=== PATIENT | male | born 1965 | race Hispanic/Latino ===

== ENCOUNTER 2018-03-12 06:14 | Emergency (ER) | payer BC ==
[2018-03-12 08:02] VITALS: BP 139/94
--- NOTE | 2018-03-12 09:56 | Emergency Department Report ---
Blank Doc - Documentation Documentation: Patient is a 52-year-old male who is presenting with a rash for approximately 5 weeks. Patient states that is an erythematous rash that is diffuse over his body. Patient states there is associated weight loss of approximately 20-30 pounds and his lymphadenopathy. Patient states he sometimes feels dizzy as well. Patient denies any penile discharge no nausea vomiting diarrhea or cough at this time. Brief physical exam patient has a splotchy erythematous rash over his entire body excluding the face that involves the palms and soles. Patient also has some lymphadenopathy in the anterior cervical chain as well as the right inguinal. An RPR will be done as well as some basic labs to rule out life- threatening conditions.
[2018-03-12 10:30] LABS: Basophils % (Auto) 0.5 % (0.0-1.8); Eosinophils % (Auto) 0.3 % (0.0-4.3); Hematocrit 37.2 % (35.5-45.6); Hemoglobin 12.4 gm/dl (11.8-15.2); Lymphocytes # (Auto) 1.2 K/mm3 (1.2-5.4); Lymphocytes % (Auto) 21.3 % (13.4-35.0); Mean Corpuscular HGB Conc 34 % (32-34); Mean Corpuscular Hemoglobin 28 pg (28-32); Mean Corpuscular Volume 84 fl (84-94); Monocytes # (Auto) 0.6 K/mm3 (0.0-0.8); Platelet Count 279 K/mm3 (140-440); Red Blood Count 4.42 M/mm3 (3.65-5.03); Red Cell Distribution Width 13.9 % (13.2-15.2)
[2018-03-12 10:46] LABS: BUN/Creatinine Ratio 13; Blood Urea Nitrogen 8 mg/dL (9-20); Calcium 8.5 mg/dL (8.4-10.2); Hemolysis Index 3
--- NOTE | 2018-03-12 10:59 | Emergency Department Report ---
ED Abdominal Pain HPI - General Chief Complaint: Skin Rash Stated Complaint: EAR PAIN / COLD SX Time Seen by Provider: 03/12/18 09:42 Source: patient Mode of arrival: Ambulatory Limitations: No Limitations - History of Present Illness Initial Comments: 52-year-old male past medical history none presents with complaint of 4 weeks of rash disseminated on his chest back legs hands palms. Denies fevers chills nausea vomiting. States that had multiple sex partners within the last 6 months. MD Complaint: abdominal pain Onset/Timin -: days(s) - Related Data Previous Rx's Medication Instructions Recorded Last Taken Type diphenhydrAMINE [Benadryl CAP] 25 mg PO Q8HR PRN #30 capsule 03/12/18 Unknown Rx Allergies Allergy/AdvReac Type Severity Reaction Status Date / Time No Known Allergies Allergy Unverified 03/12/18 07:59 ED Review of Systems ROS: Stated complaint: EAR PAIN / COLD SX Other details as noted in HPI Constitutional: denies: chills, fever Eyes: denies: eye pain, eye discharge, vision change ENT: denies: ear pain, throat pain Respiratory: denies: cough, shortness of breath, wheezing Cardiovascular: denies: chest pain, palpitations Endocrine: no symptoms reported Gastrointestinal: denies: abdominal pain, nausea, diarrhea Genitourinary: denies: urgency, dysuria Musculoskeletal: denies: back pain, joint swelling, arthralgia Skin: denies: rash, lesions Neurological: denies: headache, weakness, paresthesias Psychiatric: denies: anxiety, depression Hematological/Lymphatic: denies: easy bleeding, easy bruising ED Past Medical Hx - Past Medical History Previous Medical History?: No - Surgical History Past Surgical History?: No - Social History Smoking Status: Current Every Day Smoker Substance Use Type: Alcohol, Marijuana - Medications Home Medications: Home Medications Medication Instructions Recorded Confirmed Last Taken Type diphenhydrAMINE [Benadryl CAP] 25 mg PO Q8HR PRN #30 capsule 03/12/18 Unknown Rx ED Physical Exam - General Limitations: No Limitations General appearance: alert, in no apparent distress - Head Head exam: Present: atraumatic, normocephalic - Eye Eye exam: Present: normal appearance, PERRL, EOMI - ENT ENT exam: Present: mucous membranes moist - Neck Neck exam: Present: normal inspection - Respiratory Respiratory exam: Present: normal lung sounds bilaterally. Absent: respiratory distress - Cardiovascular Cardiovascular Exam: Present: regular rate, normal rhythm. Absent: systolic murmur, diastolic murmur, rubs, gallop - GI/Abdominal GI/Abdominal exam: Present: soft, normal bowel sounds - Rectal Rectal exam: Present: deferred - Extremities Exam Extremities exam: Present: normal inspection - Back Exam Back exam: Present: normal inspection - Neurological Exam Neurological exam: Present: alert, oriented X3 - Psychiatric Psychiatric exam: Present: normal affect, normal mood - Skin Skin exam: Present: warm, dry, intact, normal color. Absent: rash ED Course Vital Signs 03/12/18 07:59 Temperature 99.3 F Pulse Rate 101 H Respiratory 16 Rate Blood Pressure 139/94 O2 Sat by Pulse 96 Oximetry ED Medical Decision Making - Lab Data Result diagrams: 03/12/18 10:01 03/12/18 10:01 - Medical Decision Making A/P: Syphilis rash 1- discussed with Dr. Spain for discharge. Will treat patient empirically for second stage syphilis. 2- RPR sent, reactive 3- I advised patient that he must follow-up with outpatient primary care and infectious disease. I referred him to several clinics for follow-up. 4- no clinical signs of neuro syphilis. Patient has no neurological deficits on clinical exam. Awake alert and oriented 3. Critical care attestation.: If time is entered above; I have spent that time in minutes in the direct care of this critically ill patient, excluding procedure time. ED Disposition Clinical Impression: Syphilis Disposition: -01 TO HOME OR SELFCARE Is pt being admited?: No Does the pt Need Aspirin: No Condition: Stable Instructions: Syphilis (ED), Safe Sex (ED) Prescriptions: diphenhydrAMINE [Benadryl CAP] 25 mg PO Q8HR PRN #30 capsule PRN Reason: Itching Referrals: [facility] [Outside] - 3-5 Days [facility] [Outside] - 3[facility]5 Days [facility] [Outside] - 3-5 Days [facility] [Outside] - 3-5 Days TONIE WISE MD [Staff Physician] - 3-5 Days Forms: Work/School Release Form(ED) Time of Disposition: 12:16
[2018-03-12] MEDS ORDERED: NACL 0.9% 1000 ML 1,000 ML IV ONE (11:05)
[2018-03-12] MEDS ORDERED: BICILLIN L-A IM ONE (11:40)
--- NOTE | 2018-03-12 12:26 | Emergency Department Report ---
- General Chief complaint: Skin Rash Stated complaint: EAR PAIN / COLD SX Time Seen by Provider: 03/12/18 09:42 Source: patient Mode of arrival: Ambulatory Limitations: No Limitations - History of Present Illness Initial comments: 52-year-old male past medical history none presents with complaint of 4 weeks of rash disseminated on his chest back legs hands palms. Denies fevers chills nausea vomiting. States that had multiple sex partners within the last 6 months , some unprotected. Patient denies fevers or chills but does state that he has had some weight loss over the last several months to weeks and has had some inguinal groin discomfort. Denies any penile discharge. Patient denies chest pain palpitations shortness of breath up or lower extremity paresthesias. Patient is awake alert and oriented 3 not in acute distress. States rash is not itchy at this time. Visible disseminated maculopapular rash on body and hands. Denies dysuria or hematuria or increased urinary frequency. Onset/Timin -: week(s) Location: chest, back, LUE, RUE, L hand, R hand, L foot, R foot Treatments Prior to Arrival: none - Related Data Previous Rx's Medication Instructions Recorded Last Taken Type diphenhydrAMINE [Benadryl CAP] 25 mg PO Q8HR PRN #30 capsule 03/12/18 Unknown Rx Allergies Allergy/AdvReac Type Severity Reaction Status Date / Time No Known Allergies Allergy Unverified 03/12/18 07:59 Abscess Boil HPI - HPI Chief Complaint: Skin Rash Stated Complaint: EAR PAIN / COLD SX Time Seen by Provider: 03/12/18 09:42 Home Medications: Previous Rx's Medication Instructions Recorded Last Taken Type diphenhydrAMINE [Benadryl CAP] 25 mg PO Q8HR PRN #30 capsule 03/12/18 Unknown Rx Allergies/Adverse Reactions: Allergies Allergy/AdvReac Type Severity Reaction Status Date / Time No Known Allergies Allergy Unverified 03/12/18 07:59 ED Review of Systems ROS: Stated complaint: EAR PAIN / COLD SX Other details as noted in HPI Constitutional: denies: chills, fever Eyes: denies: eye pain, eye discharge, vision change ENT: denies: ear pain, throat pain Respiratory: denies: cough, shortness of breath, wheezing Cardiovascular: denies: chest pain, palpitations Endocrine: no symptoms reported Gastrointestinal: denies: abdominal pain, nausea, diarrhea Genitourinary: denies: urgency, dysuria Musculoskeletal: denies: back pain, joint swelling, arthralgia Skin: as per HPI, rash, lesions (rash on palms and soles chest trunk and legs.) Neurological: denies: headache, weakness, paresthesias Psychiatric: denies: anxiety, depression Hematological/Lymphatic: denies: easy bleeding, easy bruising ED Past Medical Hx - Past Medical History Previous Medical History?: No - Surgical History Past Surgical History?: No - Social History Smoking Status: Current Every Day Smoker Substance Use Type: Alcohol, Marijuana - Medications Home Medications: Home Medications Medication Instructions Recorded Confirmed Last Taken Type diphenhydrAMINE [Benadryl CAP] 25 mg PO Q8HR PRN #30 capsule 03/12/18 Unknown Rx ED Physical Exam - General Limitations: No Limitations General appearance: alert, in no apparent distress - Head Head exam: Present: atraumatic, normocephalic - Eye Eye exam: Present: normal appearance, PERRL, EOMI - ENT ENT exam: Present: mucous membranes moist - Neck Neck exam: Present: normal inspection - Respiratory Respiratory exam: Present: normal lung sounds bilaterally. Absent: respiratory distress - Cardiovascular Cardiovascular Exam: Present: regular rate, normal rhythm. Absent: systolic murmur, diastolic murmur, rubs, gallop - GI/Abdominal GI/Abdominal exam: Present: soft, normal bowel sounds - Rectal Rectal exam: Present: deferred - Extremities Exam Extremities exam: Present: normal inspection - Back Exam Back exam: Present: normal inspection - Neurological Exam Neurological exam: Present: alert, oriented X3, CN II-XII intact, normal gait - Psychiatric Psychiatric exam: Present: normal affect, normal mood - Skin Skin exam: Present: warm, dry, intact, normal color, rash - Expanded Skin Exam Expanded Type of lesion: Present: rash Distribution of rash: involves palms/soles, chest, back, RUE, LUE, RLE, LLE Description of rash: Present: macular, papular ED Course Vital Signs 03/12/18 07:59 Temperature 99.3 F Pulse Rate 101 H Respiratory 16 Rate Blood Pressure 139/94 O2 Sat by Pulse 96 Oximetry ED Medical Decision Making - Lab Data Result diagrams: 03/12/18 10:01 03/12/18 10:01 - Medical Decision Making A/P: Syphilis rash 1- discussed with Dr. [place] for discharge. Will treat patient empirically for second stage syphilis. 2- RPR sent, reactive 3- I advised patient that he must follow-up with outpatient primary care and infectious disease. I referred him to several clinics for follow-up. 4- no clinical signs of neuro syphilis. Patient has no neurological deficits on clinical exam. Awake alert and oriented 3. 5-vital signs stable for discharge. I advised patient to return to the ED for any fevers chills nausea vomiting confusion chest pain upper lotion paresthesias. I emphasized the importance of follow-up with primary care infectious disease specialist. Patient stated he understood the importance of follow-up. Critical care attestation.: If time is entered above; I have spent that time in minutes in the direct care of this critically ill patient, excluding procedure time. ED Disposition Clinical Impression: Syphilis Disposition: - TO HOME OR SELFCARE Is pt being admited?: No Does the pt Need Aspirin: No Condition: Stable Instructions: Syphilis (ED), Safe Sex (ED) Prescriptions: diphenhydrAMINE [Benadryl CAP] 25 mg PO Q8HR PRN #30 capsule PRN Reason: Itching Referrals: [facility] [Outside] - 3-5 Days [facility] [Outside] - 3-5 Days [facility] [Outside] - 3-5 Days [facility] [Outside] - 3-5 Days TONIE WISE MD [Staff Physician] - 3-5 Days Forms: Work/School Release Form(ED)
== END 2018-03-12 13:27 | disposition home or self-care (01) ==
LOC: ED 06:14
DX: A53.9 Syphilis, unspecified (principal); F17.200 Nicotine dependence, unspecified, uncomplicated; F12.10 Cannabis abuse, uncomplicated
CPT/HCPCS: 36415; 80048; 85025; 86592; 86593; 86780; 96372; 99283; J0561